=== PATIENT | female | born 1985 | race Caucasian/White ===

== ENCOUNTER 2022-12-12 08:43 | Outpatient (REF) | payer OTHER, SELFPAY ==
[2022-12-12 11:51] LABS: Appearance Urine Clear; Color Urine Yellow; Glucose Urine UA Negative (Negative); Leukocyte Esterase Urine Negative (Negative); Nitrite Urine Negative (Negative); Specific Gravity - Urine <= 1.005 (1.005-1.025); Urine Blood Negative (Negative); Urine Ketones Negative (Negative); Urine Protein Negative (Neg-Trace)
== END 2022-12-12 08:44 | disposition home or self-care (01) ==
LOC: HO.LAB 08:43
PROVIDERS: Visit Provider Nurse Practitioner Acute Care
DX: R30.0 Dysuria (principal); R35.0 Frequency of micturition
CPT/HCPCS: 81003

== ENCOUNTER 2023-05-15 08:52 | Outpatient (AMB) | payer OTHER, SELFPAY ==
[2023-05-15 08:57] VITALS: BP 128/78; PULSE 84; O2SAT 98
--- NOTE | 2023-05-15 08:57 | AM.OFFWIN_ITS ---
Intake Vital Signs 05/15/23 08:57 Height 5 ft 5 in BP 128/78 Blood Pressure Location Rt brachial Position Sitting Pulse 84 Pulse Source Pulse Oximeter Pulse Oximetry (%) 98 Oxygen Delivery Method Room Air Intake Visit Reasons: EP [facility] Intake Note: pt is here for c/o pink eye Patient Tobacco Use Status: Never used Tobacco Allergies penicillin V Allergy (Unknown, Verified 05/15/23 08:57) anaphylaxis Penicillins [PCN] Allergy (Unknown, Verified 05/15/23 08:57) ANAPHYLAXIS Do you need a note to return to daycare/school/sports/work: Yes HPI HPI Comments History of Present Illness Details The patient presents to the Urgent Care for evaluation of bilateral eye redness and itching. She states that her son is in daycare and apparently pink eyes going through the daycare however her son does not really have any symptoms. She states that on Thursday she developed left eye redness and yesterday developed his symptoms in the right eye as well. Today she reports that the left eye is somewhat improved. Her eyes were goopy and crusted shut this morning. They are itchy. She has been using Visine red eye drops. No visual changes. [facility] Social History Patient Tobacco Use Status: Never used Tobacco Review of Systems Const Denies headache(s) Eyes Denies change in vision, Denies floaters, Reports itchy eyes and Denies eye pain ENT Reports no additional complaints and Denies headache(s) Card Reports no additional complaints Musc Denies numbness Skin/Breast Denies skin pain, Denies skin swelling and Denies unusual bruising Neuro Denies headache(s), Denies focal weakness and Denies numbness Aller/Immun Reports itchy eyes Physical Exam Vital Signs: Last Vital Signs Pulse 84 05/15/23 08:57 BP 128/78 05/15/23 08:57 Pulse Ox 98 05/15/23 08:57 Oxygen Delivery Method Room Air 05/15/23 08:57 Const General: healthy appearing and no acute distress Orientation/consciousness: patient oriented x3 Eyes Other: Bilateral conjunctival injection with right greater than left Eyelids: Yes eyelids normal Conjunctivae: conjunctival abnormal bilateral conjunctival injection EOM: EOMs intact bilaterally Neuro General: patient oriented x3 Assessment & Plan Assessment & Plan (1) Conjunctivitis: Code(s): H10.9 - Unspecified conjunctivitis Plan Assessment: Conjunctivitis Patient's symptoms are consistent with conjunctivitis. given that this was passed through daycare and she already reports improvement in symptoms of the left eye I suspect this is viral and should resolve quickly on its own. Patient was given symptomatic advice and recommend to discontinue using the Visine drops as they may be causing additional irritation. Recommend switching to just rewetting drops. If she tries a ocular antihistamine drops she should only use that twice a day. In addition, patient was advised to call us tomorrow if symptoms are worsening and will prescribe antibiotics drops though this seems like it will not be necessary. Patient will be given written and verbal instructions. Coding Level of Care Code Est Pt Level 3 (71180) Diagnoses Conjunctivitis H10.9
== END 2023-05-15 09:51 | disposition home or self-care (01) ==
PROVIDERS: PCP Pediatrics; Visit Provider Emergency Medicine
DX: H10.9 Unspecified conjunctivitis (principal)
CPT/HCPCS: 99213

== ENCOUNTER 2023-11-25 07:04 | Outpatient (REF) | payer OTHER, SELFPAY ==
[2023-11-25 07:16] LABS: MANUAL DIFF FLAG NO
[2023-11-25 07:55] LABS: Basophils Absolute Auto 0.1 X10*3/uL (0.0-0.2); Basophils Percent Auto 0.8 % (0-2); Eosinophils Absolute Auto 0.2 X10*3/uL (0.0-0.4); Eosinophils Percent Auto 3.7 % (0-4); Hematocrit 42.2 % (37.0-47.0); Hemoglobin 14.1 g/dl (12.0-16.0); Imm Gran Abs Auto 0.03 X10*3/uL (0.00-0.03); Imm Gran Pct Auto 0.5 % (0.0-0.4); Lymphocytes Absolute Auto 2.4 X10*3/uL (1.2-4.9); Lymphocytes Percent Auto 39.7 % (20-40); Mean Corpuscular HGB Conc 33.4 g/dl (31.0-35.0); Mean Corpuscular Hemoglobin 29.9 pg (27.0-33.0); Mean Corpuscular Volume 89.6 fL (80.0-98.0); Mean Platelet Volume 10.4 fL (9.4-12.3); Monocytes Absolute Auto 0.5 X10*3/uL (0.1-1.2); Monocytes Percent Auto 7.5 % (2-11); Neutrophils Absolute Auto 2.9 x10*3/uL (2.0-8.3); Neutrophils Percent Auto 47.8 % (45-73); Platelet Count 243 X10*3/uL (160-400); Red Blood Count 4.71 X10*6/uL (4.20-5.50); Red Cell Distribution Width 12.7 % (11.0-16.0)
[2023-11-25 07:57] LABS: Estimated Average Glucose 103 mg/dL; Hemoglobin A1c % 5.2 % (<6.0)
[2023-11-25 09:03] LABS: Alanine Aminotransferase 15 U/L (0-31); Albumin Level 4.1 g/dL (3.5-5.0); Alkaline Phosphatase 63 U/L (39-117); Anion Gap 15 (12-20); Aspartate Amino Transferase 16 U/L (5-31); Bilirubin Total 0.5 mg/dL (0.0-1.0); Blood Urea Nitrogen 12 mg/dL (9-16); Carbon Dioxide 19 mmol/L (22-29); Chloride 110 mmol/L (96-108); Cholesterol 161 mg/dL (<200); Estimated Glomerular Filt Rate > 60; Glucose Random 97 mg/dL (60-115); HDL Cholesterol 44 mg/dL (>40); LDL Cholesterol Calculated 73 mg/dL (<100); Potassium 4.1 mmol/L (3.3-5.1); Sodium 140 mmol/L (135-145); Triglycerides 224 mg/dL (<150)
[2023-11-25 09:04] LABS: Thyroid Stimulating Hormone 1.77 uIU/mL (0.32-4.0)
== END 2023-11-25 07:05 | disposition home or self-care (01) ==
LOC: HO.LAB 07:04
PROVIDERS: PCP Student in an Organized Health Care Education/Training Program; Visit Provider Student in an Organized Health Care Education/Training Program
DX: Z00.00 Encounter for general adult medical examination without abnormal findings (principal)
CPT/HCPCS: 36415; 80053; 80061; 83036; 84443; 85025

== ENCOUNTER 2024-03-04 08:21 | Outpatient (REF) | payer OTHER, SELFPAY ==
[2024-03-04 12:34] LABS: CT PCR NOT DETECTED (Not Detect.); NG PCR NOT DETECTED (Not Detect.)
[2024-03-04 13:24] LABS: Bacterial Vaginosis PCR NEGATIVE (Negative); Candida Group PCR NOT DETECTED (Not Detect); Candida glab krusei PCR NOT DETECTED (Not Detect); Trichomonas vaginalis PCR NOT DETECTED (Not Detect)
[2024-03-09 14:38] LABS: HPV mRNA E6/E7 Not Detected (Not Detected)
== END 2024-03-04 08:22 | disposition home or self-care (01) ==
LOC: HO.LNP 08:21
PROVIDERS: PCP Pediatrics; Visit Provider Advanced Practice Midwife
DX: Z01.419 Encounter for gynecological examination (general) (routine) without abnormal findings (principal); Z11.51 Encounter for screening for human papillomavirus (HPV); Z20.2 Contact with and (suspected) exposure to infections with a predominantly sexual mode of transmission; N92.0 Excessive and frequent menstruation with regular cycle
CPT/HCPCS: 0352U; 87491; 87591; 87624; 88175

== ENCOUNTER 2024-03-04 08:21 | Outpatient (AMB) | payer OTHER, SELFPAY ==
--- NOTE | 2024-03-04 08:28 | MHC.OFFVIS ---
Vital Signs 03/04/24 08:29 Height 5 ft 5 in Weight 218 lb BMI 36.3 BP 122/82 Intake Visit Reasons: New patient Annual Continuous Improvement Director: Continuous Improvement Director Present (Zuri) Allergies penicillin V Allergy (Unknown, Verified 03/04/24 08:29) anaphylaxis Penicillins [PCN] Allergy (Unknown, Verified 03/04/24 08:29) ANAPHYLAXIS Is last menstrual period known: Yes Last menstrual period: 02/18/24 [facility] Comments Details: She is a premenopausal woman presenting for annual examination. Doing well with concerns: Regular monthly menses x5, HMB. She tries to eat healthy and stays active with exercise. Currently is sexually active w/. She denies vaginal itching and irritation. STI screening offered; she accepts. Denies family history of ovarian cancer. FH colon and breast cancer. Last pap smear 2017, negative. 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[employer] [place] Sexual orientation: Straight/Heterosexual Gender identity: Female Female Reproductive History Menstrual Duration of menses: 3-5 days Date of last menstrual period: 02/18/24 control method: none Total pregnancies: 2 Full term: 2 Number of Living Children: 2 Date of last pap smear: 02/03/18 (neg pap and hpv) Review of Systems Const All systems reviewed & are unremarkable except as noted in HPI and below Reports as per HPI Eyes Reports no additional complaints ENT Reports no additional complaints Card Reports no additional complaints Resp Reports no additional complaints GI Reports as per HPI and Reports no additional complaints Reports as per HPI Musc Reports no additional complaints Skin/Breast Reports as per HPI Neuro Reports no additional complaints Psych Reports no additional complaints Endo Reports no additional complaints Stefan/Lymph Reports no additional complaints Aller/Immun Reports no additional complaints Physical Exam Vital Signs: Last Vital Signs BP 122/82 03/04/24 08:29 BMI result Body Mass Index 36.3 Const General: cooperative, healthy appearing, no acute distress, well developed and alert Orientation/consciousness: patient oriented x3 HEENT Head: Yes normal to inspection Eyes General: appearance normal, both eyes and all related structures Neck Neck: Yes normal visual inspection Thyroid: Thyroid normal Chest Chest palpation & inspection: normal inspection of the chest and other (no puckering, dimpling, peau de orange, retraction, discharge, masses) Breast/axilla inspection: normal inspection of the breasts Breast/axilla palpation: normal palpation of the breasts Resp Effort & Inspection: normal respiratory effort GI Inspection: Yes normal to inspection Palpation (GI): Soft to palpation Rectal Exam - Female: deferred General: Yes bladder normal to palpation External Female Exam: normal external appearance and normal appearance of the urethra Speculum Exam - Vagina: normal appearance of the vagina, normal palpation and normal vaginal discharge Speculum Exam - Cervix: normal appearance of the cervix, normal palpation and Other cervical findings present (Bled with Pap) Bimanual exam- vagina & uterus: normal bimanual exam, normal palpation, uterine size normal, bladder normal to palpation, normal palpation and non-tender Bimanual Exam- Adnexa, other: no masses Skin General skin exam: no rashes or lesions noted Rashes: no rashes Neuro General: patient oriented x3 Cognition (Neuro): normal cognition Extrem General: Yes normal to inspection Psych Attitude: cooperative Thought process: Normal thought process present Assessment & Plan Assessment & Plan (1) Encounter for well woman exam with routine gynecological exam: Code(s): Z01.419 - Encounter for gynecological examination (general) (routine) without abnormal findings Category: Medical (2) Heavy menses: Code(s): N92.0 - Excessive and frequent menstruation with regular cycle Category: Medical Plan Discussed: Current recommendations for pap smears per ASCCP guidelines. Pap smear obtained today. Breast awareness and periodic breast exams. Maintain a healthy lifestyle including a well balanced diet and routine exercise. Mammogram yearly orders placed. Workup for heavy menstrual bleeding to include pelvic ultrasound, cervical cultures, possible endometrial biopsy. Consider treatment options to include Mirena IUD or OCPs if no contraindications, plan to discuss further at follow up for ultrasound. Advised to report any heavy prolonged episodes or closely spaced cycles less than 24 days apart. Patient verbalizes understanding and agrees to the plan of care. She was given opportunity to ask questions and all questions were answered to the best of my ability. RTO in one year for annual steffen house supervisor examination. This note is constructed using voice recognition software. While every effort has been made to ensure accuracy, method consultant errors may have been included. Orders: Orders CT NG by PCR Today N92.0 - Excessive and frequent menstruation with regular cycle PAP + HPV E6/E7 rfx 18/45 Today Z01.419 - Encounter for gynecological examination (general) (routine) without abnormal findings US pelvic and transvaginal Today N92.0 - Excessive and frequent menstruation with regular cycle Bacterial Vaginosis Panel Today N92.0 - Excessive and frequent menstruation with regular cycle MM tomosynthesis screening BI Today Z12.31 - Encounter for screening mammogram for malignant neoplasm of breast Coding Level of Care Code New Pt Prev Care 40-64y(31555) Diagnoses Encounter for well woman exam with routine gynecological exam Z01.419 Heavy menses N92.0
[2024-03-04 08:29] VITALS: BP 122/82; BMI 36.3
== END 2024-03-04 09:21 | disposition home or self-care (01) ==
PROVIDERS: PCP Pediatrics; Visit Provider Advanced Practice Midwife
DX: Z01.419 Encounter for gynecological examination (general) (routine) without abnormal findings (principal); N92.0 Excessive and frequent menstruation with regular cycle
CPT/HCPCS: 99386

== ENCOUNTER 2024-03-04 09:07 | Outpatient (REF) | payer OTHER, SELFPAY | END 2024-03-04 09:08 | disposition home or self-care (01) | LOC: HO.LAB 09:07 | PROVIDERS: Visit Provider Advanced Practice Midwife | DX: Z13.89 Encounter for screening for other disorder (principal) ==

== ENCOUNTER 2024-03-09 10:53 | Outpatient (REF) | payer OTHER, SELFPAY ==
--- NOTE | ~2024-03-09 | US_ITS ---
EXAMINATION: US PELVIS CLINICAL INFORMATION: Excessive and frequent menstruation with regular cycle COMPARISON: None available. TECHNIQUE: Ultrasound of the pelvis is performed using both transabdominal and transvaginal transducers along with Doppler. Transvaginal imaging is performed due to inadequate visualization transabdominally. FINDINGS: Uterus: The uterus is retroverted and measures 8.3 x 3.8 x 4.8 cm. The double wall endometrial thickness is 10 mm. The uterus is smooth in contour and has normal myometrial echogenicity. No visible fibroid. Adnexa: Both ovaries are visualized. There is normal color flow to the adnexa. There is no ovarian torsion. There is no pelvic ascites or fluid collection. Small amount of fluid in the cul-de-sac Right ovary measures 2.9 x 1.3 x 2.3 cm. Volume is 4.5 mL. Left ovary measures 4.3 x 3.3 x 3.2 cm. Volume is 23.8 mL. Simple cyst measuring 3.1 x 3 x 3 cm. Possible involuting luteum measuring 1.3 x 1.4 x 2 cm. US/US pelvic and transvaginal IMPRESSION: 1. Simple cyst in the left ovary measuring 3.1 cm, almost certainly benign. 2. Possible involuting luteum in the left ovary measuring 2 cm. Electronically signed by: Steve Hidalgo MD 03/17/2024 10:01 AM EDT
== END 2024-03-09 10:54 | disposition home or self-care (01) ==
LOC: HO.US 10:53
PROVIDERS: PCP Pediatrics; Visit Provider Advanced Practice Midwife
DX: N92.0 Excessive and frequent menstruation with regular cycle (principal)
CPT/HCPCS: 76830; 76856

== ENCOUNTER 2024-04-12 08:36 | Outpatient (REF) | payer OTHER, SELFPAY ==
--- NOTE | ~2024-04-12 | MM_ITS ---
EXAMINATION: MM SCREENING DIGITAL BREAST TOMOSYNTHESIS, BILATERAL CLINICAL INFORMATION: Screening. Asymptomatic. COMPARISON: Mammography: Baseline. TECHNIQUE: Digital breast mammography with tomosynthesis is performed in both the craniocaudal and mediolateral oblique views along with computer-aided detection (CAD). FINDINGS: The breasts are heterogeneously dense, which may obscure small masses (ACR BI-RADS breast composition Category c). There are no significant masses, abnormal calcifications, or other abnormalities. MM/MM tomosynthesis screening BI IMPRESSION: No mammographic evidence of malignancy. ASSESSMENT: BI-RADS BI-RADS 1 - Negative RECOMMENDATION: Routine annual mammography screening. 1 year F/U This examination should not preclude the clinical evaluation of a suspicious palpable abnormality. This patient's information was entered into a reminder system with a target due date for their next mammogram. Electronically signed by: Ca Bolivar DO 04/22/2024 04:45 PM EDT
== END 2024-04-12 08:37 | disposition home or self-care (01) ==
LOC: HO.MAMMO 08:36
PROVIDERS: PCP Student in an Organized Health Care Education/Training Program; Visit Provider Advanced Practice Midwife
DX: Z12.31 Encounter for screening mammogram for malignant neoplasm of breast (principal)
CPT/HCPCS: 77063; 77067

== ENCOUNTER → 2024-04-12 08:45 | Outpatient (BNV) | payer OTHER, SELFPAY | PROVIDERS: PCP Student in an Organized Health Care Education/Training Program; Visit Provider Internal Medicine | DX: Z12.31 Encounter for screening mammogram for malignant neoplasm of breast (principal) | CPT/HCPCS: 77063; 77067 ==

== ENCOUNTER 2024-04-29 07:50 | Outpatient (AMB) | payer OTHER, SELFPAY ==
--- NOTE | 2024-04-29 07:57 | MHC.OFFVIS ---
Intake Visit Reasons: US follow up Electric Operator: Electric Operator Present Allergies penicillin V Allergy (Unknown, Verified 04/29/24 08:00) anaphylaxis Penicillins [PCN] Allergy (Unknown, Verified 04/29/24 08:00) ANAPHYLAXIS Is last menstrual period known: Yes Last menstrual period: 04/18/24 HPI Comments Details: Patient is here today for a follow up pelvic ultrasound due to history of heavy menstrual bleeding. Labs 11/25/2023 H&H 14.1/42.2, TSH-1.77. Cycle history regular x5 days. She reports over the last month or so the cycles were not as bothersome. She denies any pelvic pain. 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[employer] – [place] Sexual orientation: Straight/Heterosexual Gender identity: Female Female Reproductive History Menstrual Date of last menstrual period: 04/18/24 Review of Systems Const All systems reviewed & are unremarkable except as noted in HPI and below Endo Reports no additional complaints Physical Exam Const General: cooperative, healthy appearing and no acute distress Psych Appearance: well kempt Attitude: cooperative Thought process: Normal thought process present Results Reviewed Results Reviewed: [address] [address] Ultrasound Report Signed Patient: Erik Aranda MR#: [id number] : 1985 Acct:[id number] Age/Sex: 38 / F ADM Date: 03/09/24 Loc: HO.US Attending Dr: Gina Smith CNM Ordering Physician: Gina Smith CNM Date of Service: 03/09/24 Procedure(s): US pelvic and transvaginal Accession Number(s): [id number] cc: Zora Root MD; Gina Smith CNM~ EXAMINATION: US PELVIS CLINICAL INFORMATION: Excessive and frequent menstruation with regular cycle COMPARISON: None available. TECHNIQUE: Ultrasound of the pelvis is performed using both transabdominal and transvaginal transducers along with Doppler. Transvaginal imaging is performed due to inadequate visualization transabdominally. FINDINGS: Uterus: The uterus is retroverted and measures 8.3 x 3.8 x 4.8 cm. The double wall endometrial thickness is 10 mm. The uterus is smooth in contour and has normal myometrial echogenicity. No visible fibroid. Adnexa: Both ovaries are visualized. There is normal color flow to the adnexa. There is no ovarian torsion. There is no pelvic ascites or fluid collection. Small amount of fluid in the cul-de-sac Right ovary measures 2.9 x 1.3 x 2.3 cm. Volume is 4.5 mL. Left ovary measures 4.3 x 3.3 x 3.2 cm. Volume is 23.8 mL. Simple cyst measuring 3.1 x 3 x 3 cm. Possible involuting luteum measuring 1.3 x 1.4 x 2 cm. US/US pelvic and transvaginal IMPRESSION: 1. Simple cyst in the left ovary measuring 3.1 cm, almost certainly benign. 2. Possible involuting luteum in the left ovary measuring 2 cm. Electronically signed by: Steve Hidalgo MD 03/17/2024 10:01 AM EDT Dictated By: Steve Hidalgo MD Signed By: <Electronically signed by Steve Hidalgo MD in OV> 03/17/24 1001 DD/ 1104 TD/TT: 03/09/24 1127 Voip Network Engineer: Assessment & Plan Assessment & Plan (1) Heavy menses: Code(s): N92.0 - Excessive and frequent menstruation with regular cycle Category: Medical Qualifiers: Menorrhagia type: with regular cycle Qualified Code(s): N92.0 - Excessive and frequent menstruation with regular cycle (2) Encounter to discuss test results: Code(s): Z71.2 - Person consulting for explanation of examination or test findings Plan Discussed: Ultrasound findings-left ovarian cyst proximally 3 cm appears to be a corpus luteum, no follow up required unless having left sided pelvic pain. Advised to call if there is any concerns. She prefers not to have a Mirena IUD at this time. Reviewed self-help measures for dysmenorrhea and bleeding consider NSAIDs-Advil 3 tablets with food every 6 hours for the 1st 24-48 hours of cycle. Monitor bleeding. Report any heavy prolonged or closely spaced cycles. Has follow up annual exam 03/25/2025. All of her questions and concerns were addressed to the best of my ability and shared decision making. She is agreeable to the plan of care. This note is constructed using voice recognition software. While every effort has been made to ensure accuracy, waste machine tender errors may have been included. Coding Level of Care Code Est Pt Level 3 (97885) Diagnoses Menorrhagia with regular cycle N92.0 Menorrhagia type: with regular cycle Encounter to discuss test results Z71.2
== END 2024-04-29 10:42 | disposition home or self-care (01) ==
PROVIDERS: PCP Pediatrics; Visit Provider Advanced Practice Midwife
DX: N92.0 Excessive and frequent menstruation with regular cycle (principal); Z71.2 Person consulting for explanation of examination or test findings
CPT/HCPCS: 99213

== ENCOUNTER → 2024-04-29 07:50 | Outpatient (BNVA) | payer OTHER, SELFPAY | PROVIDERS: PCP Pediatrics; Visit Provider Advanced Practice Midwife ==

== ENCOUNTER 2025-02-01 08:47 | Outpatient (AMB) | payer OTHER, SELFPAY ==
--- NOTE | 2025-02-01 08:49 | MHC.PC.OV ---
Vital Signs 02/01/25 08:59 Height 5 ft 5.55 in Weight 220 lb 6 oz BMI 36.1 BP 114/84 Blood Pressure Location Lt brachial Position Sitting Respiration 12 Pulse 69 Pulse Source Pulse Oximeter Temp 98.6 F Temp Source Oral Pulse Oximetry (%) 98 Oxygen Delivery Method Room Air Intake Visit Reasons: MANAGER FINANCIAL REPORTING-PE Intake Note: New patient visit Biomedical Technician Required: No Allergies penicillin V Allergy (Unknown, Verified 02/01/25 08:57) anaphylaxis Penicillins (PCN) Allergy (Unknown, Verified 02/01/25 08:50) ANAPHYLAXIS Medication List - Last Reconciled 02/01/25 by Cindy Brown PA-C lansoprazole (Prevacid 24Hr) 15 mg PO DAILY Tobacco use date assessed: 02/01/25 Dental Screening Dental Screen Date: 02/01/25 Did you have a dental visit in the last 12 months?: Yes Did you have a dental problem in the last 6 months where you did not have access to dental care?: No Was dental information given to patient?: Patient has dentist HPI MANAGER FINANCIAL REPORTING-PE HPI Details Pt is a 39 y/o female who presents today to [facility] care. She has a significant past medical history of esophageal stricture (needing dilation in 2006), erosive esophagitis and IBS with diarrhea. GI: hx of stricture, IBS with diarrhea and erosive esophagitis and would like to follow up with GI. She states that she is aware of a lot of her triggers and tries to avoid them. She does have to take Prevacid. She failed omeprazole it caused more GI upset. She states that she had a colonoscopy and endoscopy in 2006 and thinks that she had a repeat endoscopy pre the pandemic. She states that she has been unable to come off of a PPI. She is not experiencing any current difficulty swallowing. She does get intermittent diarrhea and abdominal cramping and attributes this to her IBS and the Prevacid. Field Mechanic: Up-to-date, had pre-eclampsia x2 with pregnancies. had vasectomy Mammo: UTD, 04/28 Works full-time as a nurse. Has 2 sons 6 and 12 years old both and hockey. She is very busy with this lifestyle. [facility] Medical History (Updated 02/01/25 @ 09:43 by Cindy Brown PA-C) GERD (gastroesophageal reflux disease) Surgical History H/O lithotripsy Family History (Updated 02/01/25 @ 09:17 by Nelia Emery CMA) Paternal Grandmother History of breast cancer Paternal Grandfather Colon cancer Social History (Updated 03/04/24 @ 09:45 by Gina Smith CNM) Housing: House Alcohol intake: current Alcohol intake frequency: holidays/special occasions only Patient Tobacco Use Status: Never used Tobacco e-Cigarette/Vaping Use: Never Used Second Hand Smoke Exposure: No service: No Current occupational status: employed 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 1. Little interest or pleasure in doing things: not at all 2. Feeling down, depressed, or hopeless: not at all 3. Trouble falling or staying asleep, or sleeping too much: not at all 4. Feeling tired or having little energy: not at all 5. Poor appetite or overeating: not at all 6. Feeling bad about yourself - or that you are a failure or have let yourself or your family down: not at all 7. Trouble concentrating on things, such as reading the newspaper or watching television: not at all 8. Moving or speaking so slowly that other people could have noticed. Or the opposite - being so fidgety or restless that you have been moving around a lot more than usual: not at all 9. Thoughts that you would be better off or of hurting yourself in some way: not at all Total score: 0 Depression Screening Interpretation: Negative Depression Screening Done: Yes 13857 - PHQ-9 Billing: Yes Source: Developed by Drs. Tone Guthrie, Julita Mallory, Carlton Best and colleagues, with an educational blaine from [employer]. Thrive Questionnaire Date Thrive assessed: 01/26/25 I am a: Patient What is your living situation today?: I have a steady place to live Within the past 12 months, did the food you bought not last and you didn't have the money to get more?: Never true Within the past 12 months, did you worry whether your food would run out before you got money to buy more?: Never true Do you have trouble paying for medicines?: No Do you have trouble getting transportation to medical appointments?: No Do you have trouble paying your heating and electricity bill?: No Do you have trouble taking care of your child, family member or friend?: No Do you have trouble with day-to-day activities such as bathing, preparing meals, shopping, managing finances, etc.?: No Are you currently unemployed and looking for a job?: No Are you interested in more education?: No Please select the resources that you would like help with: None Currently or been in a relationship where the following occur: No concerns reported THRIVE Score: 0 AUDIT C Alcohol Use Questionnaire (AUDIT-C) 1. How often do you have a drink containing alcohol?: 2-4 times a month 2. How many drinks containing alcohol do you have on a typical day when you are drinking?: 1 or 2 3. How often do you have six or more drinks on one occasion?: Never Total Score: 2 CHRISTINE-7 AMB Questionnaire CHRISTINE-7 Date CHRISTINE - 7 assessed: 02/01/25 Feeling nervous, anxious, or on edge: 0 = Not at all Not being able to stop or control worryin = Not at all Worrying too much about different things: 0 = Not at all Trouble relaxin = Several days Being so restless that it is hard to sit still: 0 = Not at all Becoming easily annoyed or irritable: 1 = Several days Feeling afraid as if something awful might happen: 0 = Not at all Total CHRISTINE-7 score (0-4 normal; 5-9 mild; 10-14 moderate; 15-21 severe): 2 Source: Developed by Drs. Tone Guthrie, Julita Mallory, Carlton Best and colleagues, with an educational blaine from [employer]. CHRISTINE-7 Assessment Billing CHRISTINE-7 Assessment Tool: CHRISTINE-7 Assessment 97444 Physical exam (Primary Care) Vital Signs: Last Vital Signs Temp 98.6 F 02/01/25 08:59 Pulse 69 02/01/25 08:59 Resp 12 02/01/25 08:59 BP 114/84 02/01/25 08:59 Pulse Ox 98 02/01/25 08:59 Oxygen Delivery Method Room Air 02/01/25 08:59 BMI result Body Mass Index 36.1 Tobacco/Smoking Status: Tobacco use Status Tobacco use date assessed 02/01/25 02/01/25 08:51 Patient Tobacco Use Status Never used Tobacco 02/01/25 08:51 e-Cigarette/Vaping Use Never Used 02/01/25 08:51 PHQ-9: PHQ-9 Score PHQ-9: Total score 0 02/01/25 08:51 Depression Screening Interpretation: Negative Thrive Assessment: Date of Thrive Assessment Date Thrive assessed 01/26/25 02/01/25 08:51 Currently or been in a relationship where the following occur: No concerns reported Const Orientation/consciousness: patient oriented x3 HENMT Ears: hearing grossly normal bilaterally Neck Thyroid: Thyroid normal Lymphatic: no lymphadenopathy noted Resp Auscultation: clear to auscultation bilaterally Cardio Rate: regular rate Rhythm: regular rhythm Heart sounds: S1 normal heart sound present and S2 normal heart sound present GI Inspection: Yes normal to inspection Palpation (GI): Soft to palpation and Other GI palpation findings present (nontender, no cva tenderness) Auscultation: normoactive bowel sounds Rectal Exam - Female: deferred Skin General skin exam: no rashes or lesions noted Neuro General: patient oriented x3, gait normal and no focal motor deficits Coding Level of Care Code New Pt Level 3 (57908) Complex EM visit Add On G2211 Diagnoses Erosive gastroesophageal reflux disease K21.00 Irritable bowel syndrome with diarrhea K58.0 Additional Codes CHRISTINE-7 Assessment Billing - CHRISTINE-7 Assessment Tool: CHRISTINE-7 Assessment 70122 ([id number]) PHQ-9 - 42378 - PHQ-9 Billing: Yes ([id number]) Assessment & Plan Assessment & Plan (1) Erosive gastroesophageal reflux disease: Code(s): K21.00 - Gastro-esophageal reflux disease with esophagitis, without bleeding Category: Medical Plan: Continue Prevacid Referral to GI (2) Irritable bowel syndrome with diarrhea: Code(s): K58.0 - Irritable bowel syndrome with diarrhea Category: Medical Plan: As above Plan Labs ordered today. Referral to GI Referral to derm for routine skin check. Orders: Orders Lipid Panel Today K21.00 - Gastro-esophageal reflux disease with esophagitis, without bleeding, K58.0 - Irritable bowel syndrome with diarrhea, Z00.00 - Encounter for general adult medical examination without abnormal findings TSH reflex Free T4 Today K21.00 - Gastro-esophageal reflux disease with esophagitis, without bleeding, K58.0 - Irritable bowel syndrome with diarrhea, Z00.00 - Encounter for general adult medical examination without abnormal findings Microalbumin, Random (w Creat) Today K21.00 - Gastro-esophageal reflux disease with esophagitis, without bleeding, K58.0 - Irritable bowel syndrome with diarrhea, Z00.00 - Encounter for general adult medical examination without abnormal findings Complete Blood Count Auto Diff Today K21.00 - Gastro-esophageal reflux disease with esophagitis, without bleeding, K58.0 - Irritable bowel syndrome with diarrhea, Z00.00 - Encounter for general adult medical examination without abnormal findings Comprehensive [place]. Panel Fast Today K21.00 - Gastro-esophageal reflux disease with esophagitis, without bleeding, K58.0 - Irritable bowel syndrome with diarrhea, Z00.00 - Encounter for general adult medical examination without abnormal findings UA CC w/rflx Micro + Cult Today K21.00 - Gastro-esophageal reflux disease with esophagitis, without bleeding, K58.0 - Irritable bowel syndrome with diarrhea, Z00.00 - Encounter for general adult medical examination without abnormal findings, Z13.220 - Encounter for screening for lipoid disorders Referrals Gastroenterology Referral K21.00 - Gastro-esophageal reflux disease with esophagitis, without bleeding, K22.2 - Esophageal obstruction, K58.0 - Irritable bowel syndrome with diarrhea Dermatology Referral D22.9 - Melanocytic nevi, unspecified
[2025-02-01 08:59] VITALS: BP 114/84; PULSE 69; RESP 12; TEMP 37; O2SAT 98; BMI 36.1
== END 2025-02-01 10:05 | disposition home or self-care (01) ==
LOC: HO.HMCFM 08:48
PROVIDERS: PCP Physician Assistant; Visit Provider Physician Assistant
DX: K21.00 Gastro-esophageal reflux disease with esophagitis, without bleeding (principal); K58.0 Irritable bowel syndrome with diarrhea

== ENCOUNTER → 2025-02-01 08:47 | Outpatient (BNVA) | payer OTHER, SELFPAY | PROVIDERS: PCP Physician Assistant; Visit Provider Physician Assistant | DX: K58.0 Irritable bowel syndrome with diarrhea (principal); K21.00 Gastro-esophageal reflux disease with esophagitis, without bleeding; K22.2 Esophageal obstruction; D22.9 Melanocytic nevi, unspecified | CPT/HCPCS: 96127 ==

== ENCOUNTER 2025-06-15 07:49 | Outpatient (AMB) | payer OTHER, SELFPAY ==
[2025-06-15 07:54] VITALS: BP 133/70; PULSE 67; BMI 35.8
--- NOTE | 2025-06-15 07:54 | A.OFFVIS_ITS ---
Vital Signs 06/15/25 07:54 Height 5 ft 5.5 in Weight 218 lb 4.122 oz BMI 35.8 BP 133/70 Blood Pressure Location Lt brachial Position Sitting Pulse 67 Intake Visit Reasons: Irritable bowel syndrome with diarrhea Intake Note: Miriam presents in the office as a CC: She states she is having diarrhea and esophigitis - she never had reflux but she had a stricture. She ended up in the ED - [facility]. [place] Bottom Maker Required: No Allergies penicillin V Allergy (Unknown, Verified 06/15/25 07:56) anaphylaxis Penicillins (PCN) Allergy (Unknown, Verified 06/15/25 07:56) ANAPHYLAXIS Medication List - Last Reconciled 06/15/25 by Sana Navarro CNP lansoprazole (Prevacid 24Hr) 15 mg PO DAILY HPI HPI Irritable bowel syndrome with diarrhea: Details: Patient is a 39-year-old female with PMH of []. Referred by PCP for further evaluation of reflux and diarrhea. She has a history of IBS symptoms, including cramping and diarrhea, since childhood. From age 11 until (late 20s), she was lactose intolerant, but after having children, her symptoms shifted to a sensitivity to fats and sugars. Her primary upper GI symptom is dysphagia ( hard swallow ), which can lead to food bolus impaction requiring emergency room visits; however, this has not occurred in the past five years since she has been more diligent with her medication. She reports a prior diagnosis of eosinophilic esophagitis and takes lansoprazole 15 mg daily, which prevents the impaction but exacerbates her lower GI symptoms, causing bloating and constipation. A trial of omeprazole caused severe cramping and gas. She periodically holds the lansoprazole for up to a w manzanita to manage the diarrhea, but the dysphagia returns. She denies any heartburn or regurgitation. Regarding her lower GI symptoms, she typically has several soft bowel movements daily, with intermittent episodes of liquid diarrhea. She reports occasional bright red blood on wiping, which she attributes to hemorrhoids. She also experiences intermittent left lower quadrant abdominal pain, which she believes is related to her digestion and not her menstrual cycle or a previously identified ovarian cyst. Her surgical and procedural history includes a normal colonoscopy in 2006 and approximately five or six upper endoscopies. Her first EGD around 2012 revealed a Schatzki ring that was dilated; it was not seen on a subsequent procedure. Her last EGD was in 2017 or 2018. A previous provider also noted a hiatal hernia. Her mother has a history of diverticulitis with a perforated abscess. Patient denies: fever/chills, n/v, appetite changes, pyrosis, regurgitation, dysphasia, unintentional wt loss. Social hx: -ETOH use Reports drinking alcohol a couple of times per week socially. -denies recreational drug use -non-smoker - family hx as below -denies personal hx of CA -denies significant cardiopulmonary history -tolerated anesthesia in the past without difficulty. PFSH Medical History (Updated 06/15/25 @ 08:30 by Sana Navarro CNP) Blood in stool GERD (gastroesophageal reflux disease) Surgical History (Updated 06/15/25 @ 07:56 by JENARO Burnham) Hx of colonoscopy History of esophagogastroduodenoscopy (EGD) H/O lithotripsy Family History Paternal Grandmother History of breast cancer Paternal Grandfather Colon cancer Social History Housing: House Alcohol intake: current Alcohol intake frequency: holidays/special occasions only Patient Tobacco Use Status: Never used Tobacco e-Cigarette/Vaping Use: Never Used Second Hand Smoke Exposure: No service: No Current occupational status: employed 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[employer] [place] Current occupational exposures/hazards: No Sexual orientation: Straight/Heterosexual Gender identity: Female Cognitive needs: No Hearing needs: No Vision needs: Yes (glasses) Review of Systems Const Reports as per HPI ENT Reports as per HPI Card Reports as per HPI Resp Reports as per HPI GI Reports as per HPI Reports as per HPI Physical Exam Vital Signs: Last Vital Signs Pulse 67 06/15/25 07:54 BP 133/70 06/15/25 07:54 BMI result Body Mass Index 35.8 Const General: healthy appearing, no acute distress and well developed Nutritional Appearance: average body habitus Orientation/consciousness: patient oriented x3 HEENT Head: Yes normal to inspection, Yes normocephalic and Yes atraumatic Face and sinus: Yes normal facial exam Eyes General: appearance normal, both eyes and all related structures Neck Neck: Yes normal visual inspection Resp Effort & Inspection: normal respiratory effort, able to speak in complete sentences, no tracheal deviation and symmetric chest movement Cardio Jugular venous distension: no JVD GI Inspection: Yes normal to inspection and No distended Palpation (GI): Soft to palpation, not firm, nontender and No hepatosplenomegaly present Auscultation: normal bowel sounds Neuro General: patient oriented x3 Gait exam (Neuro): Normal gait present Psych Appearance: grossly normal Mental Status: mental status grossly normal Speech and movement: Normal speech and movement present Affect: normal affect Attitude: cooperative Thought process: Normal thought process present Thought content: Normal thought content present Insight: Good insight present (Psych) Judgement: Good judgement present (Psych) Assessment & Plan Assessment & Plan (1) Erosive gastroesophageal reflux disease: Code(s): K21.00 - Gastro-esophageal reflux disease with esophagitis, without bleeding Category: Medical Plan: The patient will continue lansoprazole for long-term management of upper GI symptoms. The benefits of preventing complications such as Salcedo's esophagus outweigh the potential risks. - To mitigate the risk of bone loss from long-term PPI use, the patient was advised to consider a multivitamin with calcium and Vitamin D and to engage in weight-bearing exercises. - An upper endoscopy (EGD) will be ordered to re-evaluate her esophagus and assess the need for another dilation. (2) Irritable bowel syndrome with diarrhea: Code(s): K58.0 - Irritable bowel syndrome with diarrhea Category: Medical Plan: Dietary management was recommended, including a trial of a low-FODMAP diet to manage gassiness associated with fiber intake. A handout was provided. - Recommended incorporating foods that promote good gut bacteria, such as sauerkraut and kombucha, as tolerated. - Will not add additional medications at this time to manage the side effects of lansoprazole; lifestyle modifications are preferred. (3) Blood in stool: Code(s): K92.1 - Melena Category: Medical Plan: Suspect hemorrhoidal/fissure induced. However, shared decision making to obtain a colonoscopy, to be performed with the EGD, to investigate the reports of blood in the stool and evaluate for diverticulosis, which is suspected due to the patient's left lower quadrant pain and family history. - If the colonoscopy is unyielding and symptoms persist, a CT scan of the abdomen will be considered. - Discussed management of hemorrhoids, including minimizing straining and using topical [id number] treatments for flares, if needed. - The patient was instructed to seek emergency care for left lower quadrant pain if associated with fever, nausea, or vomiting, as this could indicate diverticulitis. Plan Follow-up after endoscopy or sooner as needed Time: I spent a total of 35 minutes on the date of encounter which includes: Preparing to see the patient (reviewed previous documentation, test results and medical history) Performing a medically appropriate exam and/or evaluation Ordering medications, tests, and procedures Documenting clinical information in the health record Orders: Referrals GI Procedure Notification K21.00 - Gastro-esophageal reflux disease with esophagitis, without bleeding, K58.0 - Irritable bowel syndrome with diarrhea, K92.1 - Melena Medications: New polyethylene glycol 3350 (Miralax) per colonoscopy prep instructions 238 grams PO ONCE 238 grams 0RF bisacodyl take four tablets once day of colonoscopy prep 20 mg (4 x 5 mg) PO ONCE 4 tabs 0RF Coding Level of Care Code New Pt New Pt Level 3 (57402) Patient Type New Diagnoses Erosive gastroesophageal reflux disease K21.00 Irritable bowel syndrome with diarrhea K58.0 Blood in stool K92.1
== END 2025-06-15 08:46 | disposition home or self-care (01) ==
LOC: HO.HGI 07:49
PROVIDERS: PCP Physician Assistant; Visit Provider Nurse Practitioner Family
DX: K21.00 Gastro-esophageal reflux disease with esophagitis, without bleeding (principal); K58.0 Irritable bowel syndrome with diarrhea; K92.1 Melena
CPT/HCPCS: 99203